=== PATIENT | female | born 1950 | race Caucasian/White ===

== ENCOUNTER → 2016-12-06 | Outpatient (CLI) | payer BC, MEDICARE ==
--- NOTE | 2016-12-06 11:52 | XR ---
EXAMINATION TYPE: XR thoracic spine complete DATE OF EXAM ORDERED: 12/06/2016 11:40 AM HISTORY: Mid thoracic pain. COMPARISON: None. FINDINGS: There is minimal wedging of several of the mid dorsal vertebra. The upper thoracic spine i s not well seen in the lateral projection. There is mild, diffuse hypertrophic spondylosis. There is spondylosis deformans in the mid to lower d orsal spine. The pedicles are intact. Paraspinal soft tissues are normal. IMPRESSION: 1. NO ACUTE OSSEOUS LESION. 2. DEGENERATIVE CHANGE.
== END | disposition home or self-care (01) ==
LOC: RADXRMAIN 11:03
PROVIDERS: ATTEND Internal Medicine
DX: M47.814 Spondylosis without myelopathy or radiculopathy, thoracic region (principal)
CPT/HCPCS: 72072

== ENCOUNTER → 2016-12-07 | Outpatient (CLI) | payer BC, MEDICARE ==
--- NOTE | 2016-12-07 13:17 | XR ---
EXAMINATION TYPE: XR lumbosacral spine min 4V DATE OF EXAM: 12/07/2016 10:57 AM COMPARISON: NONE HISTORY: 66-year-old female low back pain, right-sided low back pain for years. TECHNIQUE: 5 views FINDINGS: 5 lumbar type vertebral bodies. No pars interarticularis defect. There is facet arthropathy in the mi d to lower lumbar spine. Variable moderate disc interspace narrowing, greatest at L2-L3 and then at L 5-S1 where there is disc vacuum, endplate sclerosis, and endplate spondylosis. Schmorl's nodes involv ing the endplates at L1-L2. There is trace grade 1 retrolistheses at L2-L3, L3-L4, and L4-L5. Degenerative thinning of the intras pinous ligaments with abutment of the spinous processes in the lower lumbar spine. Vertebral body heights are preserved. IMPRESSION: 1. Moderate multilevel disc/endplate degenerative change. 2. Facet arthropathy with grade 1 retrolistheses from L2 through L5 levels. 3. Baastrup's disease. 4. No vertebral compression collapse.
== END | disposition home or self-care (01) ==
LOC: RADXRMAIN 10:37
PROVIDERS: ATTEND Internal Medicine
DX: M43.16 Spondylolisthesis, lumbar region (principal); M46.96 Unspecified inflammatory spondylopathy, lumbar region; M47.816 Spondylosis without myelopathy or radiculopathy, lumbar region; M47.817 Spondylosis without myelopathy or radiculopathy, lumbosacral region; M48.26 Kissing spine, lumbar region
CPT/HCPCS: 72110

== ENCOUNTER → 2017-06-28 | Outpatient (CLI) | payer BC, MEDICARE ==
--- NOTE | 2017-06-29 11:50 | MM ---
Reason for exam: screening (asymptomatic). Last mammogram was performed 1 year and 2 months ago. History: Patient is postmenopausal and is nulliparous. Physical Findings: A clinical breast exam by your physician is recommended on an annual basis and results should be correlated with mammographic findings. MG Screening Mammo w CAD Bilateral CC and MLO view(s) were taken. Prior study comparison: May 12, 2016, bilateral MG screening mammo w CAD. November 19, 2014, mammogram, performed at [place]. There are scattered fibroglandular densities. There is no discrete abnormality. No significant changes when compared with prior studies. ASSESSMENT: Negative, BI-RAD 1 RECOMMENDATION: Routine screening mammogram of both breasts in 1 year.
== END | disposition home or self-care (01) ==
LOC: RADMAMWWP 12:22
PROVIDERS: ATTEND Internal Medicine
DX: Z12.31 Encounter for screening mammogram for malignant neoplasm of breast (principal)

== ENCOUNTER → 2018-06-25 | Outpatient (CLI) | payer MEDICARE ==
[2018-06-25 07:30] LABS: ALT 40 U/L (9-52); AST 31 U/L (14-36); Cholesterol 189 mg/dL (<200); HDL Cholesterol 44 mg/dL (40-60); LDL Cholesterol,Calculated 124 mg/dL (0-99); Triglycerides 106 mg/dL (<150)
== END | disposition home or self-care (01) ==
LOC: LABWHC1 06:39
PROVIDERS: ATTEND Nurse Practitioner Adult Health
DX: E78.2 Mixed hyperlipidemia (principal)
CPT/HCPCS: 36415; 80061; 84450; 84460

== ENCOUNTER → 2018-06-25 | Outpatient (CLI) | payer MEDICARE ==
--- NOTE | 2018-06-25 11:41 | US ---
EXAMINATION TYPE: US abdomen complete DATE OF EXAM: 06/25/2018 COMPARISON: NONE CLINICAL HISTORY: R10.84 Generalized abdominal pain. Nausea x 1 weeks ago. Epigastric pain. NPO. EXAM MEASUREMENTS: Liver Length: 15.7 cm Gallbladder Wall: 0.2 cm CBD: 0.5 cm CHD: 0.5 cm Spleen: 9.7 cm Right Kidney: 10.4 x 4.3 x 3.7 cm Left Kidney: 10.0 x 4.1 x 4.9 cm Pancreas: wnl as visualized, tail is obscured. Main pancreatic duct- 1.5 mm Liver: Appears echogenic. Gallbladder: wnl Evidence for sonographic Yao's sign: neg CBD: wnl CHD: wnl Spleen: wnl Right Kidney: wnl Left Kidney: wnl Upper IVC: wnl Abd Aorta: wnl The intrahepatic portion of the IVC and proximal abdominal aorta are within normal limits. There is no evidence of cholelithiasis. Common bile duct is unremarkable. The visualized portions of the veras creas are homogenous. The spleen is unremarkable. Kidneys are symmetric and free of hydronephrosis. No renal lesions are seen. IMPRESSION: Some limitation to the exam. Questionable echogenic and heterogeneous appearance of the l iver could be due to underlying hepatocellular disease.
== END | disposition home or self-care (01) ==
LOC: RADUSWWP 06:50
PROVIDERS: ATTEND Internal Medicine
DX: R10.84 Generalized abdominal pain (principal)
CPT/HCPCS: 76700

== ENCOUNTER → 2018-08-26 | Outpatient (CLI) | payer MEDICARE ==
--- NOTE | 2018-08-28 11:31 | MM ---
Reason for exam: screening (asymptomatic). Last mammogram was performed 1 year and 2 months ago. History: Patient is postmenopausal and is nulliparous. Physical Findings: A clinical breast exam by your physician is recommended on an annual basis and results should be correlated with mammographic findings. MG 3D Screening Mammo W/Cad Bilateral CC and MLO view(s) were taken. Prior study comparison: June 28, 2017, bilateral MG screening mammo w CAD. May 12, 2016, bilateral MG screening mammo w CAD. There are scattered fibroglandular densities. No significant changes when compared with prior studies. ASSESSMENT: Negative, BI-RAD 1 RECOMMENDATION: Routine screening mammogram of both breasts in 1 year.
== END | disposition home or self-care (01) ==
LOC: RADMAMWWP 14:24
PROVIDERS: ATTEND Internal Medicine
DX: Z12.31 Encounter for screening mammogram for malignant neoplasm of breast (principal)
CPT/HCPCS: 77063; 77067

== ENCOUNTER → 2019-01-06 | Outpatient (CLI) | payer MEDICARE ==
--- NOTE | 2019-01-06 13:30 | BD ---
EXAMINATION TYPE: Axial Bone Density DATE OF EXAM: 01/06/2019 COMPARISON: 2016 CLINICAL HISTORY: M [age]. History of osteopenia. Screening exam. Height: 5 FT 3 3/4 IN Weight: 201 FRAX RISK QUESTIONS: Secondary Osteoporosis: 3. Menopause before 45: YES 5. Chronic liver disease: FATTY RISK FACTORS HISTORY OF: Active: YES Postmenopausal woman: AGE 46 MEDICATIONS: Additional Medications: METOPROLOL, NORCO, LISINOPRIL, H2O PILL, ATORVASTATIN, SLEEP AID, Additional History: EXAM MEASUREMENTS: Bone mineral densitometry was performed using the [employer] System. Bone mineral density as measured about the Lumbar spine is: ----- L1-L4(G/cm2): 1.338 T Score Values are as follows: ----- L2: 1.6 ----- L3: 2.6 ----- L4: 1.1 ----- L1-L4: 1.3 Bone mineral density has: INCREASED 1.3 % since study of: 2015 Bone mineral density about the R hip (g/cm2): 0.944 Bone mineral density about the L hip (g/cm2): 0.924 T Score values are as follows: -----R Neck: -0.7 -----L Neck: -0.8 -----R Total: -0.2 -----L Total: 0.0 Bone mineral density has: INCREASED 5.0 % since study of: 2016 IMPRESSION: Normal (Values between +1 and -1 indicate normal bone mass). Consider repeating this study in 5 year s or sooner if there is some new clinical indication. NOTE: T-SCORE=SD OF THE YOUNG ADULT MEAN.
== END | disposition home or self-care (01) ==
LOC: RADBDWWP 09:04
PROVIDERS: ATTEND Internal Medicine
DX: M89.9 Disorder of bone, unspecified (principal)
CPT/HCPCS: 77080

== ENCOUNTER → 2019-04-14 | Outpatient (CLI) | payer MEDICARE ==
--- NOTE | 2019-04-14 16:07 | XR ---
EXAMINATION TYPE: XR Hip Bilateral Complete DATE OF EXAM: 04/14/2019 CLINICAL HISTORY: Bilateral hip pain. No stated injury. TECHNIQUE: AP and frogleg views of both hips were obtained. COMPARISON: None. FINDINGS: There is no acute fracture/dislocation evident in either hip. The joint spaces of both hi ps appears mildly narrowed in the medial direction. Acetabular roof sclerosis is mild bilaterally wit h small subchondral cyst formation of both acetabular sourcil. No cam deformity is identified. No peggy picious osseous lesion. The overlying soft tissue appears unremarkable. IMPRESSION: There is no acute fracture or dislocation in either hip. Moderate femoral acetabular art hropathy bilaterally.
== END | disposition home or self-care (01) ==
LOC: LABWHC1 15:43
PROVIDERS: ATTEND Internal Medicine
DX: M16.0 Bilateral primary osteoarthritis of hip (principal)
CPT/HCPCS: 73521

== ENCOUNTER → 2019-09-29 | Outpatient (CLI) | payer MEDICARE ==
--- NOTE | 2019-09-30 11:08 | MM ---
Reason for exam: screening (asymptomatic). Last mammogram was performed 1 year and 1 month ago. History: Patient is postmenopausal and is nulliparous. Physical Findings: A clinical breast exam by your physician is recommended on an annual basis and results should be correlated with mammographic findings. MG 3D Screening Mammo W/Cad Bilateral CC and MLO view(s) were taken. Prior study comparison: August 26, 2018, bilateral MG 3d screening mammo w/cad. June 28, 2017, bilateral MG screening mammo w CAD. There are scattered fibroglandular densities. No significant changes when compared with prior studies. ASSESSMENT: Negative, BI-RAD 1 RECOMMENDATION: Routine screening mammogram of both breasts in 1 year.
== END | disposition home or self-care (01) ==
LOC: RADMAMWWP 14:27
PROVIDERS: ATTEND Internal Medicine
DX: Z12.31 Encounter for screening mammogram for malignant neoplasm of breast (principal)
CPT/HCPCS: 77063; 77067

== ENCOUNTER → 2019-10-14 | Outpatient (CLI) | payer MEDICARE ==
--- NOTE | 2019-10-14 21:35 | US ---
EXAMINATION TYPE: US venous doppler duplex LE RT DATE OF EXAM: 10/14/2019 5:23 PM COMPARISON: NONE CLINICAL HISTORY: Pain in R L Limb,Swelling,RO DVT. Pain and swelling x 2 days. No hx of DVT. SIDE PERFORMED: Right TECHNIQUE: The lower extremity deep venous system is examined utilizing real time linear array sonog gene with graded compression, doppler sonography and color-flow sonography. VESSELS IMAGED: External Iliac Vein (EIV) Common Femoral Vein Deep Femoral Vein Greater Saphenous Vein * Femoral Vein Popliteal Vein Small Saphenous Vein * Proximal Calf Veins (* superficial vessels) Right Leg: No evidence of DVT in veins imaged at this time from prox calf veins to EIV. IMPRESSION: No evidence of DVT at this time.
== END | disposition home or self-care (01) ==
LOC: RADUSMAIN 16:54
PROVIDERS: ATTEND Internal Medicine
DX: M79.661 Pain in right lower leg (principal)

== ENCOUNTER → 2020-11-03 | Outpatient (CLI) | payer MEDICARE ==
--- NOTE | 2020-11-04 10:27 | MR ---
EXAMINATION TYPE: MR lumbar spine wo con DATE OF EXAM: 11/03/2020 COMPARISON: None HISTORY: LBP, BLE radic CONTRAST: 0 mL intravenous Gadavist. TECHNIQUE: Multiplanar, multisequence images of the lumbar spine were acquired. FINDINGS: Degenerative disc changes are present throughout the lumbar spine. There is loss of disc h eight L2-3. Minimal retrolisthesis of L2 on L3 may be present. Modic type II degenerative changes are at the endplates of L2-3. L5-S1: No significant disc bulge or disc herniation. No spinal canal stenosis. No foraminal stenosi s. Facet hypertrophy and ligamentum flavum laxity is posterior lateral thecal sac compression. Some lateral canal narrowing may be present. Bilateral foraminal narrowing is present. L4-L5: No significant disc bulge or disc herniation. No spinal canal stenosis. There is a small disc left paracentral protrusion with mild anterior thecal sac compression. Facet hypertrophy is present with posterior lateral thecal sac contact. AP spinal canal stenosis is not present. Some lateral gerardo l narrowing is present.. L3-L4: Broad-based disc bulge has mild anterior thecal sac compression No spinal canal stenosis. Facet hypertrophy is present. Mild left foraminal narrowing is present . L2-L3: No significant disc bulge or disc herniation. Endplate spurring has moderate anterior thecal sac compression. No AP spinal canal stenosis is present. Facet hypertrophy is present. Mild ligamentu m flavum laxity is present with posterior lateral thecal sac compression. L1-L2: Mild disc bulge has anterior thecal sac contact. No AP spinal canal stenosis present. Subligam entous disc extension may be present posterior to the L1 level. Neural foramen are patent T12-L1: No significant disc bulge or disc herniation. No spinal canal stenosis. No foraminal stenos is. Cord terminates at the L1 level. IMPRESSION: 1. Facet hypertrophy and ligamentum flavum laxity with lateral canal narrowing L5-S1, L4-5. 2. Multilevel degenerative disc changes greatest at L2-3 with loss of disc height and endplate change s.. Endplate spurring is noted at L2-L3. 3. Bilateral foraminal narrowing L5-S1
== END | disposition home or self-care (01) ==
LOC: RADMRIMAIN 14:02
PROVIDERS: ATTEND Internal Medicine
DX: M48.061 Spinal stenosis, lumbar region without neurogenic claudication (principal); M47.816 Spondylosis without myelopathy or radiculopathy, lumbar region; M51.86 Other intervertebral disc disorders, lumbar region; M89.38 Hypertrophy of bone, other site; M46.06 Spinal enthesopathy, lumbar region
CPT/HCPCS: 72148

== ENCOUNTER → 2020-12-02 | Outpatient (CLI) | payer MEDICARE ==
--- NOTE | 2020-12-03 14:22 | MM ---
Reason for exam: screening (asymptomatic). Last mammogram was performed 1 year and 2 months ago. History: Patient is postmenopausal and is nulliparous. Took hormonal contraceptives for 5 years. Physical Findings: A clinical breast exam by your physician is recommended on an annual basis and results should be correlated with mammographic findings. MG 3D Screening Mammo W/Cad Bilateral CC and MLO view(s) were taken. Prior study comparison: September 29, 2019, bilateral MG 3d screening mammo w/cad. August 26, 2018, bilateral MG 3d screening mammo w/cad. The breast tissue is heterogeneously dense. This may lower the sensitivity of mammography. There is no discrete abnormality. No significant changes when compared with prior studies. ASSESSMENT: Benign, BI-RAD 2 RECOMMENDATION: Routine screening mammogram of both breasts in 1 year.
== END | disposition home or self-care (01) ==
LOC: RADMAMWWP 10:03
PROVIDERS: ATTEND Internal Medicine
DX: Z12.31 Encounter for screening mammogram for malignant neoplasm of breast (principal)
CPT/HCPCS: 77063; 77067

== ENCOUNTER → 2024-01-17 | Outpatient (CLI) | payer MEDICARE ==
--- NOTE | 2024-01-21 00:07 | MM ---
Reason for Exam: Screening (asymptomatic). Last mammogram was performed 1 year(s) and 1 month(s) ago. Patient History: Menarche at age 14. Patient has no children. Postmenopausal. Patient used Hormonal Contraceptives for 5 years. Risk Values: Camila 5 year model risk: 2.0%. NCI Lifetime model risk: 5.1%. Prior Study Comparison: 12/02/2020 Bilateral Screening Mammogram, [facility]. 12/21/2021 Bilateral Screening Mammogram, [facility]. 12/22/2022 Bilateral MG 3D screening mammo w/cad, [facility]. Tissue Density: The breasts are heterogeneously dense, which may obscure small masses. Findings: Analyzed By CAD. There is no suspicious group of microcalcifications or new suspicious mass in either breast. Overall Assessment: Negative, BI-RAD 1 Management: Screening Mammogram of both breasts in 1 year. . Patient should continue monthly self-breast exams. A clinical breast exam by your physician is recommended on an annual basis. This exam should not preclude additional follow-up of suspicious palpable abnormalities. Note on Camila scores and lifetime risk: 1. A Camila score greater than 3% is considered moderate risk. If this is the case, consider specialist referral to assess eligibility for a risk reducing agent. 2. If overall lifetime risk for the development of breast cancer is 20% or higher, the patient may qualify for future screening with alternating mammogram and breast MRI. Electronically signed and approved by: Marleni Garcia M.D. Radiologist
== END | disposition home or self-care (01) ==
LOC: RADMAMWWP 12:42
PROVIDERS: ATTEND Internal Medicine
DX: Z12.31 Encounter for screening mammogram for malignant neoplasm of breast (principal); Z78.0 Asymptomatic menopausal state
CPT/HCPCS: 77063; 77067

== ENCOUNTER → 2025-03-18 | Outpatient (CLI) | payer MEDICARE ==
--- NOTE | 2025-03-18 11:43 | MM ---
Reason for Exam: Screening (asymptomatic). Last mammogram was performed 1 year(s) and 2 month(s) ago. Patient History: Menarche at age 14. Patient has no children. Postmenopausal. Patient used Hormonal Contraceptives for 5 years. Risk Values: Camila 5 year model risk: 2.0%. NCI Lifetime model risk: 4.8%. Prior Study Comparison: 12/21/2021 Bilateral Screening Mammogram, [facility]. 12/22/2022 Bilateral MG 3D screening mammo w/cad, [facility]. 01/17/2024 Bilateral MG 3D screening mammo w/cad, [facility]. Tissue Density: There are scattered areas of fibroglandular density. Findings: Analyzed By CAD. There are a few scattered tiny benign round calcifications bilaterally redemonstrated. Benign-appearing bilateral axillary lymph nodes are again. There is no suspicious group of microcalcifications or new suspicious mass in either breast. Overall Assessment: Benign, BI-RAD 2 Management: Screening Mammogram of both breasts in 1 year. . Patient should continue monthly self-breast exams. A clinical breast exam by your physician is recommended on an annual basis. This exam should not preclude additional follow-up of suspicious palpable abnormalities. Note on Camila scores and lifetime risk: 1. A Camila score greater than 3% is considered moderate risk. If this is the case, consider specialist referral to assess eligibility for a risk reducing agent. 2. If overall lifetime risk for the development of breast cancer is 20% or higher, the patient may qualify for future screening with alternating mammogram and breast MRI. [facility], , 03/18/2025 11:40 AM. Electronically signed and approved by: Brian Petty M.D.
== END | disposition home or self-care (01) ==
LOC: RADMAMWWP 11:06
PROVIDERS: ATTEND Internal Medicine
DX: Z12.31 Encounter for screening mammogram for malignant neoplasm of breast (principal); R92.323 Mammographic fibroglandular density, bilateral breasts; Z78.0 Asymptomatic menopausal state; Z92.0 Personal history of contraception
CPT/HCPCS: 77063; 77067